=== PATIENT | female | born 1960 | race Caucasian/White ===

== ENCOUNTER 2019-11-09 22:57 | Emergency (ER) | payer MEDICARE, BC ==
[~2019-11-09] VITALS: Ht 175.3 cm; Wt 95.3 kg
--- NOTE | 2019-11-09 23:15 | NUR ---
PT AAOX4, AMBULATORY WITH STEADY GAIT. BIBRA 78. C/O L SIDED CP RADIATING TO L ARM AND BACK SINCE 11AM. PT STATED SHE DID NOT WANT TO COME IN DUE TO HER THINKING IT MIGHT BE ANXIETY. NO ACUTE DISTRESS NOTED. VSS. AT BEDSIDE FOR EVAL. AWAITING ORDERS. PER EKG SR.
[2019-11-09] MEDS ORDERED: KETOROLAC TROMETHAMINE INJ 30 MG/ML VIAL ONE (23:23)
--- NOTE | 2019-11-09 23:24 | NUR ---
LINE INITIATED LAC 18G, LABS DRAWN AND SENT.
[2019-11-09] MEDS: KETOROLAC TROMETHAMINE INJ 30 MG/ML VIAL IV ONE (23:28)
[2019-11-09 23:40] LABS: BASOPHILS # (AUTO) 0.1 /CMM (0.0-0.2); EOSINOPHILS % (AUTO) 3.1 % (0.0-6.0); HEMATOCRIT 36 % (33-45); HEMOGLOBIN 12.1 g/dL (11.5-14.8); LYMPHOCYTES # (AUTO) 2.5 /CMM (0.8-4.8); LYMPHOCYTES % (AUTO) 40.2 % (20.0-44.0); MEAN CORPUSCULAR HGB CONC 34 g/dl (31.0-36.0); MEAN CORPUSCULAR VOLUME 96 fL (82-100); MONOCYTES # (AUTO) 0.6 /CMM (0.1-1.30); MONOCYTES % (AUTO) 9.2 % (2.0-12.0); NEUTROPHILS # (AUTO) 2.8 /CMM (1.8-8.9); NEUTROPHILS % (AUTO) 46.5 % (43.0-81.0); PLATELET COUNT (AUTO) 305 /CMM (150-450); RED BLOOD CELL COUNT(AUTO) 3.77 MIL/uL (4.0-5.2); WHITE BLOOD COUNT (AUTO) 6.1 K/uL (4.3-11.0)
[2019-11-09 23:46] LABS: CALCIUM, SERUM 8.7 mg/dL (8.5-10.1); CARBON DIOXIDE 26 mmol/L (21-32); CHLORIDE 104 mmol/L (98-107); GLUCOSE 107 mg/dL (74-106); POTASSIUM 3.7 mmol/L (3.5-5.1); SODIUM SERUM 141 mmol/L (136-145); UREA NITROGEN, BLOOD 12 mg/dL (7-18)
--- NOTE | 2019-11-10 00:02 | NUR ---
US AT BEDSIDE
[2019-11-10] MEDS ORDERED: IOHEXOL-350 100 ML VIAL IV ONE (00:03)
[2019-11-10] MEDS ORDERED: CT SWABBABLE VALVE TRANS SET 1 EA INFUS.SET MC ONE (00:03)
[2019-11-10] MEDS ORDERED: IV NS 0.9% 250 ML IV ONE (00:03)
--- NOTE | 2019-11-10 00:47 | NUR ---
NEGATIVE FOR DVT
--- NOTE | 2019-11-10 00:47 | NUR ---
BROUGHT TO CT
--- NOTE | 2019-11-10 01:07 | NUR ---
BROUGHT BACK FROM CT
[2019-11-10 01:47] VITALS: BP 128/71
--- NOTE | 2019-11-10 01:47 | NUR ---
Patient discharged to home in stable condition. Written and verbal after care instructions given. Patient verbalizes understanding of instruction.
--- NOTE | 2019-11-10 01:47 | NUR ---
IV removed. Catheter intact and site benign. Pressure and 4x4 applied to site. No bleeding noted.
== END 2019-11-10 01:48 | disposition home or self-care (01) ==
LOC: ER 23:04
DX: R07.89 Other chest pain (principal); R60.0 Localized edema; I10 Essential (primary) hypertension; E78.5 Hyperlipidemia, unspecified; F41.9 Anxiety disorder, unspecified; F32.9 Major depressive disorder, single episode, unspecified; Z88.8 Allergy status to other drugs, medicaments and biological substances
CPT/HCPCS: 36415; 71045; 71275; 80048; 83880; 84484; 85025; 93005; 93970; 96374; 99285; J1885; J7050; Q9967

== ENCOUNTER 2020-10-31 15:20 | Emergency (ER) | payer MEDICARE, BC ==
[~2020-10-31] VITALS: Ht 154.9 cm; Wt 100.7 kg
--- NOTE | 2020-10-31 15:40 | NUR ---
"Right Knee pain/swelling started few days ago but seems worse now. Also have on/of numbness on left arm. Hx radiculopathy" Patient a/ox4, breathing even and unlabored, no sob noted, needs attended. Kept comfortable.
[2020-10-31] MEDS ORDERED: KETOROLAC TROMETHAMINE INJ 30 MG/ML VIAL IM ONE (16:30)
[2020-10-31] MEDS ORDERED: KETOROLAC TROMETHAMINE INJ 30 MG/ML VIAL ONE (16:36)
--- NOTE | 2020-10-31 16:39 | NUR ---
US TECH AT BEDSIDE. PATIENT REFUSED TORADOL AT THIS TIME.
[2020-10-31 17:35] LABS: BASOPHILS % (AUTO) 0.7 % (0.0-2.0); EOSINOPHILS % (AUTO) 2.4 % (0.0-6.0); HEMATOCRIT 37 % (33-45); HEMOGLOBIN 12.4 g/dL (11.5-14.8); LYMPHOCYTES # (AUTO) 1.9 K/uL (0.8-4.8); LYMPHOCYTES % (AUTO) 32.8 % (20.0-44.0); MEAN CORPUSCULAR HGB CONC 34 g/dl (31.0-36.0); MEAN CORPUSCULAR VOLUME 94 fL (82-100); MONOCYTES # (AUTO) 0.4 K/uL (0.1-1.30); MONOCYTES % (AUTO) 7.2 % (2.0-12.0); NEUTROPHILS # (AUTO) 3.4 K/uL (1.8-8.9); NEUTROPHILS % (AUTO) 56.9 % (43.0-81.0); PLATELET COUNT (AUTO) 332 K/uL (150-450); WHITE BLOOD COUNT (AUTO) 5.9 K/uL (4.3-11.0)
--- NOTE | 2020-10-31 17:55 | NUR ---
Pt prefers to wait in car for test result call "NOT comfortable with other pt they're NOT wearing a mask"
[2020-10-31 18:56] LABS: ALANINE AMINOTRANSFERASE 26 U/L (12-78); ALBUMIN 3.6 g/dL (3.4-5.0); ALKALINE PHOSPHATASE 71 U/L (46-116); ASPARTATE AMINOTRANSFERASE 18 U/L (15-37); BILIRUBIN,DIRECT 0.1 mg/dL (0.0-0.2); BILIRUBIN,TOTAL 0.3 mg/dL (0.2-1.0); CARBON DIOXIDE 27 mmol/L (21-32); CHLORIDE 106 mmol/L (98-107); GLUCOSE 102 mg/dL (74-106); SODIUM SERUM 144 mmol/L (136-145); TOTAL PROTEIN, SERUM 7.1 g/dL (6.4-8.2); UREA NITROGEN, BLOOD 15 mg/dL (7-18)
--- NOTE | 2020-10-31 19:40 | NUR ---
Patient discharged to home in stable condition. Written and verbal after care instructions given. Patient verbalizes understanding of instruction. Addendum: 10/31/20 at 2050 by EALFARO Patient eloped from facility. SUMI CARDONA notified.
[2020-10-31 19:51] VITALS: BP 110/64
== END 2020-10-31 19:40 | disposition home or self-care (01) ==
LOC: ER 15:27
DX: M79.661 Pain in right lower leg (principal); R07.89 Other chest pain; I10 Essential (primary) hypertension; E78.5 Hyperlipidemia, unspecified; F41.9 Anxiety disorder, unspecified; F32.9 Major depressive disorder, single episode, unspecified; Z88.8 Allergy status to other drugs, medicaments and biological substances
CPT/HCPCS: 36415; 71045-TC; 73564-TC; 80048-TC; 80076-TC; 84484-TC; 85025-TC; 85378-TC; 93971-TC; J1885